=== PATIENT | female | born 1945 | race Caucasian/White ===

== ENCOUNTER 2018-06-13 23:24 | Emergency (ER) | payer OTHER, BC ==
[2018-06-13] MEDS ORDERED: VANCOMYCIN 1 GM in D5W (PRE-DOCKED) 1,000 MG/250 ML IVPB ONE (23:35)
[2018-06-13] MEDS ORDERED: PIPERACILLIN/TAZOB 3.375 GM 3.375 GM in DEXTROSE 5%-WATER - 50 ML IVPB ONE (23:36)
[2018-06-13] MEDS ORDERED: SODIUM CHLORIDE 1,000 ML IV SCH (23:45)
[2018-06-13] MEDS ORDERED: PIPERACILLIN/TAZOBACTAM 3.375 GM VIAL IVPB ONE (23:48)
[2018-06-13] MEDS ORDERED: VANCOMYCIN 1,000 MG VIAL (RESTRICTED TO ID ONLY) ONE (23:48)
[2018-06-14 00:10] VITALS: BP 154/74; PULSE 82; TEMP 99; BMI 38.9
[2018-06-14 00:51] LABS: BASO % 0.6 % (0-2.0); EOS % 4.3 % (0-4.5); HEMATOCRIT 41.8 % (32.4-45.2); LYMPH % 16.6 % (8-40); MCH 30.2 pg (25.7-33.7); MCHC 33.4 g/dl (32.0-36.0); MEAN CELL VOLUME 90.3 fl (80-96); MEAN PLT VOLUME 7.5 fl (7.5-11.1); MONO % 8.7 % (3.8-10.2); NEUT % 69.8 % (42.8-82.8); PLATELET COUNT 343 K/MM3 (134-434); RBC 4.63 M/mm3 (3.60-5.2); RDW 14.2 % (11.6-15.6); WHITE BLOOD COUNT 8.3 K/mm3 (4.0-10.0)
[2018-06-14 01:17] LABS: ALBUMIN 3.6 g/dl (3.4-5.0); BILIRUBIN,TOTAL 0.3 mg/dL (0.2-1); CALCIUM 8.7 mg/dL (8.5-10.1); CREATININE 0.7 mg/dL (0.55-1.3); POTASSIUM 3.7 mmol/L (3.5-5.1); TOT PROT 6.6 g/dl (6.4-8.2)
[2018-06-14 01:28] LABS: INR 1.01 (0.83-1.09); PROTHROMBIN TIME (PATIENT) 11.9 SEC (9.7-13.0)
--- NOTE | 2018-06-14 01:38 | PDOC ---
Documentation entered by Sarkis Hernandez SCRIBE, acting as scribe for Regina Freeman MD. Regina Freeman MD: This documentation has been prepared by the Mary carey Juan Manue, SCRIBE, under my direction and personally reviewed by me in its entirety. I confirm that the documentation accurately reflects all work, treatment, procedures, and medical decision making performed by me. History of Present Illness - General Chief Complaint: Edema Stated Complaint: LT ARM SWELLING/BLISTERS Time Seen by Provider: 06/13/18 23:31 History Source: Patient, Old Records Exam Limitations: No Limitations - History of Present Illness Initial Comments: 06/13/18 23:36 The patient is a 72 year old female, who presents to the ED complaining of swelling, warmth and raised spots on her left arm onset today. She reports that she began to notice the warmth and blistering and decided to come to the ED for further evaluation of a possible infection. She does reports warmth but not a specific temperature. The patient denies chest pain, shortness of breath, headache and dizziness. Denies fever, chills, nausea, vomiting, diarrhea or constipation. Denies dysuria , frequency, urgency and hematuria. PAST MEDICAL HISTORY: COPD, Diabetes, reflux, hypothyroidism and HLD PAST SURGICAL HISTORY: SPINAL FUSION TIMES THREE, LAMINECTOMY, DISCECTOMY FAMILY HISTORY: no pertinent history SOCIAL HISTORY: Pt lives with family MEDICATIONS: reviewed ALLERGIES: As per nursing notes General: No fevers or chills, no weakness, no weight loss HEENT: No change in vision. No sore throat,. No ear pain CardioVascular: No chest pain or shortness of breath Respiratory:No cough, or wheezing. Gastrointestinal: no nausea, vomiting, diarrhea or constipation, No rectal bleeding Genitourinary: No dysuria, hematuria, or frequency Musculoskeletal: No joint or muscle pain or swelling Neurologic: No headache, vertigo, dizziness or loss of consciousness Psychiatric: nor depression Skin: (+) Left upper extremity swelling, erythema and warthm. Endocrine: no increased thirst or abnormal weight change Allergic: no skin or latex allergy All other systems reviewed and normal General: Well-nourished well-developed individual, no acute distress HEENT: Throat: Normal, tonsils normal, no erythema or exudate Neck: Supple, no meningeal signs, no lymphadenopathy Eyes::Pupils equal reactive and round, extraocular motion intact Chest: Nontender to palpation Cardiac: S1-S2 normal, regular rate and rhythm, no murmurs rubs or gallops Respiratory: Lungs clear to auscultation bilateral Abdomen: Soft, nondistended, normal bowel sounds, nontender to palpation diffusely Extremities: Warm, dry, no cyanosis, clubbing, or edema Skin: (+) Left upper extremity erythema from wrist to shoulder, increased warmth with blistering of skin and edema. Tenderness on palpation. Neuro: Alert and oriented x3, nonfocal exam, grossly intact, normal gait Psych: Normal mood and affect Past History - Past Medical History Allergies/Adverse Reactions: Allergies Allergy/AdvReac Type Severity Reaction Status Date / Time furosemide [From Lasix] Allergy Severe THROAT,SWEL Verified 05/24/15 15:58 LING Sulfonylureas Allergy Severe THROAT Verified 05/24/15 15:58 SWELLING HIVES cefazolin sodium [From Ancef] Allergy THROAT Verified 05/24/15 15:58 SWELLING, RASH Cephalosporins Allergy THROAT Verified 05/24/15 15:58 SWELLING,RASH ondansetron Allergy Verified 05/24/15 15:58 Sulfa (Sulfonamide Allergy THROAT Verified 05/24/15 15:58 Antibiotics) SWELLING RAH Home Medications: Ambulatory Orders Diclofenac Potassium 100 mg PO HS 11/07/12 Ipratropium Belk 15 ml NS BID 11/07/12 Levothyroxine [Synthroid -] 100 mcg PO DAILY 11/07/12 Mometasone Furoate [Nasonex] 1 - 2 inh NS DAILY 11/07/12 Salmeterol/Fluticasone [Advair 250Mcg/50Mcg -] 1 inh PO BID 11/07/12 Insulin Detemir [Levemir Flexpen] 45 unit SQ HS 01/01/13 Insulin Lispro [Humalog] 30 unit SQ BID 01/01/13 Pramipexole Di-HCl [Mirapex] 0.5 mg PO HS 03/19/15 Clindamycin [Cleocin -] 600 mg PO TID #30 capsule 06/14/18 Cyclobenzaprine HCl 10 mg PO HS 06/14/18 Anemia: No Asthma: Yes Cancer: No Cardiac Disorders: No CVA: No COPD: Yes CHF: No Dementia: No Diabetes: Yes GI Disorders: Yes (REFLUX) Disorders: No HTN: No Hypercholesterolemia: Yes Liver Disease: No Seizures: No Thyroid Disease: Yes (HYPO) - Surgical History Abdominal Surgery: No Appendectomy: No Cardiac Surgery: No Cholecystectomy: No Lung Surgery: No Neurologic Surgery: Yes (SPINAL FUSION TIMES THREE, LAMINECTOMY, DISCECTOMY) Orthopedic Surgery: Yes - Suicide/Smoking/Psychosocial Hx Smoking History: Never smoked Have you smoked in the past 12 months: No Hx Alcohol Use: No Drug/Substance Use Hx: No Substance Use Type: None Hx Substance Use Treatment: No *Physical Exam - Vital Signs Last Vital Signs Temp Pulse Resp BP Pulse Ox 99 F 82 18 154/74 95 06/13/18 23:25 06/13/18 23:25 06/13/18 23:25 06/13/18 23:25 06/13/18 23:25 ED Treatment Course - LABORATORY CBC & Chemistry Diagram: 06/14/18 00:00 06/14/18 00:00 - ADDITIONAL ORDERS Additional order review: Laboratory Results 06/14/18 06/14/18 06/13/18 00:00 00:00 23:40 PT with INR 11.90 INR 1.01 Sodium 134 L Potassium 3.7 Chloride 97 L Carbon Dioxide 32 Anion Gap 6 L BUN 13 Creatinine 0.7 Est GFR (CKD-EPI)AfAm 101.74 Est GFR (CKD-EPI)NonAf 87.78 Random Glucose 205 H Lactic Acid 1.5 Calcium 8.7 Total Bilirubin 0.3 AST 15 ALT 21 Alkaline Phosphatase 103 Total Protein 6.6 Albumin 3.6 06/14/18 00:00 RBC 4.63 MCV 90.3 MCHC 33.4 RDW 14.2 MPV 7.5 Neutrophils % 69.8 Lymphocytes % 16.6 Monocytes % 8.7 Eosinophils % 4.3 Basophils % 0.6 - Medications Given in the ED: ED Medications Discontinued Medications Generic Name Dose Route Start Last Admin Trade Name Freq PRN Reason Stop Dose Admin Vancomycin HCl 1,000 mg 06/13/18 23:35 06/14/18 00:00 Vancomycin (Pre-Docked) IVPB 06/13/18 23:36 1,000 mg ONCE ONE Administration Protocol *DC/Admit/Observation/Transfer Diagnosis at time of Disposition: Cellulitis Qualifiers: Site of cellulitis: extremity Site of cellulitis of extremity: upper extremity Laterality: left Qualified Code(s): L03.114 - Cellulitis of left upper limb - Discharge Dispostion Condition at time of disposition: Stable Decision to Admit order: No - Prescriptions Prescriptions: Clindamycin [Cleocin -] 600 mg PO TID #30 capsule - Referrals Referrals: John Colon MD [Primary Care Provider] - - Patient Instructions Additional Instructions: Take clindamycin 1 tablet 3 times a day for 10 days. If the infection starts getting works, you started developing fevers or not getting better, return to the ED and anticipate getting admitted. Return to the emergency department immediately with ANY new, persistent or worsening symptoms. Continue any medications as previously prescribed by your physician. You should follow up with your primary doctor as soon as possible regarding today's emergency department visit. . Please make sure your doctor reviews the results of your emergency evaluation. Thank you for coming to the Emergency Department today for your care. It was a pleasure to see you today. Please note that your evaluation is INCOMPLETE until you follow-up with your doctor. - Post Discharge Activity - Attestations Scribe Attestion: 06/13/18 23:36 Documentation prepared by Sarkis Hernandez, acting as medical technicians for Regina Freeman MD
--- NOTE | 2018-06-15 10:34 | PDOC ---
Patient Follow-up (Call Back) - Post ED Follow - Up Condition at time of discharge: Stable Disposition at time of original discharge: HOME - Disposition Additional Instructions/Notes: Phone call from patient today. Cellulitis is resolving. Still mild tenderness but erythema and swelling are much improved. Requests refill of medication. Original prescription is filled by the pharmacist was only a 5 day supply, but 10 days were recommended by Dr. Carrillo. Additional 5 days supply of clindamycin 600 mg 3 times a day was sent to [facility]. Patient will follow-up with her primary physician or return to the ER if condition worsens or other areas sign of systemic illness such as fever/chills, body aches, lightheadedness, dizziness , chest pain, shortness of breath.
== END 2018-06-14 02:17 | disposition home or self-care (01) ==
LOC: FER 23:24
PROC: 3E03329 Introduction of Other Anti-infective into Peripheral Vein, Percutaneous Approach (ICD-10-PCS; principal; 2018-06-13)
PROC: 3E0337Z Introduction of Electrolytic and Water Balance Substance into Peripheral Vein, Percutaneous Approach (ICD-10-PCS; 2018-06-13)
DX: L03.114 Cellulitis of left upper limb (principal); E11.9 Type 2 diabetes mellitus without complications; E03.9 Hypothyroidism, unspecified; E78.5 Hyperlipidemia, unspecified; J45.909 Unspecified asthma, uncomplicated; K21.9 Gastro-esophageal reflux disease without esophagitis; Z88.2 Allergy status to sulfonamides; Z88.8 Allergy status to other drugs, medicaments and biological substances; Z79.4 Long term (current) use of insulin; Z98.1 Arthrodesis status
CPT/HCPCS: 36415; 80053; 83605; 85025; 85610; 87040; 99283-25; J7030

== ENCOUNTER 2020-02-26 22:08 | Emergency (ER) | payer OTHER, BC ==
[2020-02-26 22:30] VITALS: BP 138/64; PULSE 97; TEMP 100.1; BMI 31.6
[2020-02-26 23:39] LABS: EPITHELIAL CELLS MODERATE /hpf
== END 2020-02-27 02:08 | disposition home or self-care (01) ==
LOC: FER 22:08
DX: T83.011A Breakdown (mechanical) of indwelling urethral catheter, initial encounter (principal); R31.0 Gross hematuria
CPT/HCPCS: 81003; 81015; 87086; 87186; 99283-25

== ENCOUNTER 2022-06-26 07:48 | Day surgery (SDC) | payer OTHER, BC ==
[2022-06-06 13:44] VITALS: BMI 33.6
[2022-06-26] MEDS ORDERED: OFLOXACIN 0.3% OPHTHALMIC SOLUTION 5 ML BOTTLE ONE (07:54)
[2022-06-26] MEDS ORDERED: KETOROLAC TROMETHAMINE 0.5% EYE DROP 1 DROP DROPS ONE (07:55)
[2022-06-26] MEDS ORDERED: PHENYLEPHRINE 2.5% OPTHALMIC DROP 2ML BOTTLE ONE (07:55)
[2022-06-26] MEDS ORDERED: CYCLOPENTOLATE HCL 1% OPHTH SOLN 2 ML BOTTLE ONE (07:55)
[2022-06-26] MEDS ORDERED: TROPICAMIDE 1% OPHTH SOLN 15 ML BOTTLE ONE (07:55)
[2022-06-26 08:56] VITALS: RESP 18
[2022-06-26] MEDS ORDERED: POVIDONE-IODINE 5% OPHTHALMIC PREP 30 ML SOLUTION ONE (09:17)
[2022-06-26] MEDS ORDERED: TETRACAINE 0.5% OPHTH SOLN 2 ML BOTTLE ONE (09:17)
[2022-06-26] MEDS ORDERED: BETAXOLOL HCL 0.25% OPHTHALMIC 10 ML DROPSBTL ONE (09:17)
[2022-06-26] MEDS ORDERED: BACITRACIN/POLYMYXIN OPH OINT 3.5 GM TUBE ONE (09:17)
[2022-06-26] MEDS ORDERED: EPI-SHUGARCAINE (EPINEPHRINE 0.025% & LIDOCAINE-PF 0.75%) 4ML ONE (09:17)
[2022-06-26] MEDS ORDERED: NEO/POLYMYX B SULF/DEXAMETH OPHTHALMIC 5ML BOTTLE ONE (09:18)
[2022-06-26] MEDS: PHENYLEPHRINE 2.5% OPHTH SOLN 15 ML BOTTLE OD SCH ×3 (09:40→09:50)
[2022-06-26] MEDS: TROPICAMIDE 1% OPHTH SOLN 15 ML BOTTLE OD SCH ×3 (09:40→09:50)
[2022-06-26] MEDS: OFLOXACIN 0.3% OPHTHALMIC SOLUTION 5 ML BOTTLE OD SCH ×3 (09:40→09:50)
[2022-06-26] MEDS: CYCLOPENTOLATE HCL 1% OPHTH SOLN 2 ML BOTTLE OD SCH ×3 (09:40→09:50)
[2022-06-26] MEDS: KETOROLAC TROMETHAMINE 0.5% EYE DROP 1 DROP DROPS OD SCH ×3 (09:40→09:50)
[2022-06-26] MEDS ORDERED: MIDAZOLAM HCL 2 MG/2 ML SINGLE DOSE VIAL ONE (10:21)
[2022-06-26] MEDS ORDERED: ACETAMINOPHEN INJECTION 100 ML IVPB ONE (10:27)
[2022-06-26] MEDS ORDERED: BSS (NA/CA/MG/K) BALANCED SALT SOLUTION OPHTH SOLN 15 ML BOTTLE ONE (10:43)
[2022-06-26] MEDS ORDERED: ACETAMINOPHEN 325 MG TABLET (FP) PO PRN (10:48)
[2022-06-26 11:01] VITALS: PULSE 74; TEMP 97
[2022-06-26 11:35] VITALS: BP 120/55
== END 2022-06-26 11:35 | disposition home or self-care (01) ==
LOC: FASU 07:48
PROVIDERS: ATTEND Ophthalmology
PROC: 08RJ3JZ Replacement of Right Lens with Synthetic Substitute, Percutaneous Approach (ICD-10-PCS; principal; 2022-06-26 10:26)
DX: H25.11 Age-related nuclear cataract, right eye (principal)
CPT/HCPCS: 66984; V2632; 82962

== ENCOUNTER 2022-07-17 08:25 | Day surgery (SDC) | payer OTHER, BC ==
[2022-06-06 12:38] VITALS: BMI 33.6
[2022-07-17] MEDS ORDERED: PHENYLEPHRINE 2.5% OPTHALMIC DROP 2ML BOTTLE ONE (08:49)
[2022-07-17] MEDS ORDERED: TROPICAMIDE 1% OPHTH SOLN 15 ML BOTTLE ONE (08:49)
[2022-07-17] MEDS ORDERED: KETOROLAC TROMETHAMINE 0.5% EYE DROP 1 DROP DROPS ONE (08:49)
[2022-07-17] MEDS ORDERED: CYCLOPENTOLATE HCL 1% OPHTH SOLN 2 ML BOTTLE ONE (08:49)
[2022-07-17] MEDS ORDERED: OFLOXACIN 0.3% OPHTHALMIC SOLUTION 5 ML BOTTLE ONE (08:49)
[2022-07-17] MEDS: CYCLOPENTOLATE HCL 1% OPHTH SOLN 2 ML BOTTLE OS SCH ×3 (09:20→09:30)
[2022-07-17] MEDS: KETOROLAC TROMETHAMINE 0.5% EYE DROP 1 DROP DROPS OS SCH ×3 (09:20→09:30)
[2022-07-17] MEDS: TROPICAMIDE 1% OPHTH SOLN 15 ML BOTTLE OS SCH ×3 (09:20→09:30)
[2022-07-17] MEDS: PHENYLEPHRINE 2.5% OPHTH SOLN 15 ML BOTTLE OS SCH ×3 (09:20→09:30)
[2022-07-17] MEDS: OFLOXACIN 0.3% OPHTHALMIC SOLUTION 5 ML BOTTLE OS SCH ×3 (09:20→09:30)
[2022-07-17] MEDS ORDERED: MIDAZOLAM HCL 2 MG/2 ML SINGLE DOSE VIAL ONE (09:24)
[2022-07-17] MEDS ORDERED: BSS (NA/CA/MG/K) BALANCED SALT SOLUTION OPHTH SOLN 15 ML BOTTLE ONE (09:49)
[2022-07-17] MEDS ORDERED: BACITRACIN/POLYMYXIN OPH OINT 3.5 GM TUBE ONE (09:49)
[2022-07-17] MEDS ORDERED: ACETYLCHOLINE 1:100 INTRA-OCUL 20 MG/2 ML KIT ONE (09:49)
[2022-07-17] MEDS ORDERED: POVIDONE-IODINE 5% OPHTHALMIC PREP 30 ML SOLUTION ONE (09:49)
[2022-07-17] MEDS ORDERED: BETAXOLOL HCL 0.25% OPHTHALMIC 10 ML DROPSBTL ONE (09:49)
[2022-07-17] MEDS ORDERED: TETRACAINE 0.5% OPHTH SOLN 2 ML BOTTLE ONE (09:49)
[2022-07-17] MEDS ORDERED: EPI-SHUGARCAINE (EPINEPHRINE 0.025% & LIDOCAINE-PF 0.75%) 4ML ONE (09:49)
[2022-07-17] MEDS ORDERED: NEO/POLYMYX B SULF/DEXAMETH OPHTHALMIC 5ML BOTTLE ONE (09:49)
[2022-07-17] MEDS ORDERED: ACETAMINOPHEN 325 MG TABLET (FP) PO PRN (10:46)
[2022-07-17 11:26] VITALS: BP 118/78; PULSE 90; RESP 18; TEMP 97.8
== END 2022-07-17 11:26 | disposition home or self-care (01) ==
LOC: FASU 08:25
PROVIDERS: ATTEND Ophthalmology
PROC: 08RJ3JZ Replacement of Right Lens with Synthetic Substitute, Percutaneous Approach (ICD-10-PCS; principal; 2022-07-17 10:27)
DX: H25.11 Age-related nuclear cataract, right eye (principal)
CPT/HCPCS: 66984; V2632; 82962

== ENCOUNTER 2022-10-17 13:04 | Emergency (ER) | payer OTHER, BC ==
[2022-10-17 13:23] VITALS: BP 135/60; PULSE 96; RESP 18; TEMP 98.9; BMI 33.6
== END 2022-10-17 14:30 | disposition home or self-care (01) ==
LOC: FER 13:04
PROC: 0T2BX0Z Change Drainage Device in Bladder, External Approach (ICD-10-PCS; principal; 2022-10-17)
DX: T83.011A Breakdown (mechanical) of indwelling urethral catheter, initial encounter (principal); R39.81 Functional urinary incontinence
CPT/HCPCS: 51702; 99283-25

== ENCOUNTER 2023-01-18 16:45 | Emergency (ER) | payer OTHER, BC ==
[2023-01-18 17:21] VITALS: PULSE 89; RESP 16; TEMP 98
[2023-01-18 17:59] VITALS: BP 134/61
== END 2023-01-18 18:00 | disposition home or self-care (01) ==
LOC: FER 16:45
PROC: 0T2BX0Z Change Drainage Device in Bladder, External Approach (ICD-10-PCS; principal; 2023-01-18)
DX: Z46.6 Encounter for fitting and adjustment of urinary device (principal)
CPT/HCPCS: 99283-25

== ENCOUNTER 2023-05-31 13:34 | Emergency (ER) | payer OTHER, BC ==
[2023-05-31 13:54] VITALS: BP 135/75; PULSE 82; RESP 18; TEMP 98; BMI 44.2
== END 2023-05-31 17:48 | disposition home or self-care (01) ==
LOC: FER 13:34
PROC: 0T9B70Z Drainage of Bladder with Drainage Device, Via Natural or Artificial Opening (ICD-10-PCS; principal; 2023-05-31)
DX: T83.011A Breakdown (mechanical) of indwelling urethral catheter, initial encounter (principal)
CPT/HCPCS: 99283-25

== ENCOUNTER 2023-07-31 11:45 | Emergency (ER) | payer OTHER, BC ==
[2023-07-31 12:17] VITALS: BP 141/62; PULSE 87; RESP 20; TEMP 99; BMI 31.8
[2023-07-31 12:54] LABS: EPITHELIAL CELLS 21-50 /hpf
== END 2023-07-31 14:36 | disposition home or self-care (01) ==
LOC: FER 11:45
PROC: 0T2BX0Z Change Drainage Device in Bladder, External Approach (ICD-10-PCS; principal; 2023-07-31)
DX: R31.9 Hematuria, unspecified (principal); T83.9XXD Unspecified complication of genitourinary prosthetic device, implant and graft, subsequent encounter
CPT/HCPCS: 81003; 81015; 99283-25

== ENCOUNTER 2023-12-09 12:03 | Emergency (ER) | payer OTHER, BC ==
[2023-12-09 12:17] VITALS: RESP 18; TEMP 98.4; BMI 31.8
[2023-12-09] MEDS ORDERED: LIDOCAINE HCL 2% JELLY 10 ML CARTRIDGE ONE (13:05)
[2023-12-09 15:27] LABS: URINE HYALINE CAST 0-1 /lpf
[2023-12-09 19:57] VITALS: BP 121/63; PULSE 81
== END 2023-12-09 19:30 | disposition home or self-care (01) ==
LOC: FER 12:03
PROC: 0T2BX0Z Change Drainage Device in Bladder, External Approach (ICD-10-PCS; principal; 2023-12-09)
DX: N39.0 Urinary tract infection, site not specified (principal); Z46.6 Encounter for fitting and adjustment of urinary device
CPT/HCPCS: 81003; 81015; 87086; 87186; 99283-25